=== PATIENT | male | born 1965 | race Two or more races ===

== ENCOUNTER 2021-06-17 10:14 | Emergency (ER) | payer SELFPAY ==
[~2021-06-17] VITALS: Ht 167.6 cm; Wt 81.8 kg
[2021-06-17] MEDS ORDERED: KETOROLAC 60 MG/2 ML VIAL. IM ONE (11:00)
[2021-06-17] MEDS ORDERED: ORPHENADRINE CITRATE 60 MG/2 ML VIAL. IM ONE (11:00)
[2021-06-17] MEDS ORDERED: MORPHINE SULFATE 2 MG/ML INJ. IVP ONE (11:30)
--- NOTE | 2021-06-17 11:52 | RAD ---
CT HEAD WITHOUT CONTRAST 06/17/2021 11:03 AM Indication: Reason: fall from 10ft / Spl. Instructions: / History: Comparison: None Procedure: Multidetector CT imaging of the head was performed without the administration of contrast. Findings: There is no evidence of acute intracranial hemorrhage. There is no evidence of acute territ orial infarction. Please note that CT is limited for evaluation of acute ischemia. No mass effect or midline shift is identified . The ventricles and basilar cisterns have an appropriate appearance. No abnormal extra-axial fluid collections are seen. No acute osseous changes are identified. Impression: No evidence of acute intracranial abnormality CT cervical spine without contrast. 06/17/2021 11:03 AM Indication:Reason: fall from 10ft / Spl. Instructions: / History: Comparison Study: None Technique: Multidetector CT imaging of the cervical spine was obtained without administration of cont rast. Findings: There is no evidence of acute fracture or alignment abnormality of the cervical spine. Vert ebral body heights and disc spaces are maintained. The atlantoaxial articulation is within normal li mits. There is no prevertebral soft tissue swelling. . No bony compromise of the spinal canal is see n. There is a nodular opacity seen in the right lung apex possibly relating to scarring, but somewhat poorly visualized measuring approximately 7 mm in diameter. Impression: 1.No evidence of acute fracture or alignment abnormality of the cervical spine 2. 7 mm nodular opacity, right upper lung. Follow-up CT chest recommended. CT DOSING PQRS STATEMENT: One or more of the following individualized dose reduction techniques were utilized for this examinat ion: 1. Automated exposure control 2. Adjustment of the mA and/or kV according to patient size 3. Use of iterative reconstruction technique Electronically signed by: Jay Jay Brown MD (06/17/2021 11:50 AM) [id number]
--- NOTE | 2021-06-17 12:10 | RAD ---
CT thoracic and lumbar spine without contrast. 06/17/2021 11:03 AM Indication:Reason: fall from 10ft Comparison Study: None Technique: Multidetector CT imaging of the thoracic and lumbar spine was obtained without administrat ion of contrast. Findings: There is no evidence of acute fracture or alignment abnormality of the thoracic spine. Crissy tebral body heights and disc spaces are maintained. There is no prevertebral soft tissue swelling. So ft tissues are otherwise unremarkable. No bony compromise of the spinal canal is seen. There is a nondisplaced fracture of the right transverse process of L3. No other acute fractures of t he lumbar spine are identified. Vertebral body heights and disc spaces are maintained. The There is no prevertebral soft tissue swelling. 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 Soft tissues are otherwise unremarkable. No bony compromise of the spinal canal is seen IMPRESSION: 1. No evidence of acute fracture or alignment abnormality of the thoracic spine 2. Nondisplaced fracture, right transverse process of L3 3. No other acute fracture of the lumbar spine is identified CT DOSING PQRS STATEMENT: One or more of the following individualized dose reduction techniques were utilized for this examinat ion: 1. Automated exposure control 2. Adjustment of the mA and/or kV according to patient size 3. Use of iterative reconstruction technique Electronically signed by: Jay Jay Brown MD (06/17/2021 12:08 PM) [id number]
--- NOTE | 2021-06-17 12:17 | PHYS DOC ---
Past Medical History Past Surgical History: No Surgical History (JEREMIAH AGUILAR) Smoking Status: Never Smoker Alcohol Use: None (JEREMIAH AGUILAR) General Adult EDM: Chief Complaint: BACK PAIN OR INJURY HPI: HPI: Patient is a 55 year old male who presents with low back pain and bilateral lower extremity weakness status post fall yesterday. Patient states that he was working on a ceiling and fell backwards 10 feet onto his back. He reports associated paresthesias in bilateral lower extremities. Patient states that when he stands up, he does not have muscle strength and can only walk very short distances. Patient denies saddle anesthesia, bowel or bladder incontinence, loss of consciousness, nausea/vomiting, headache. (JEREMIAH AGUILAR) Review of Systems: Review of Systems: Constitutional: Denies fever, chills or generalized weakness Eyes: Denies change in visual acuity, visual field deficits or discharge HENT: Denies ear pain, nasal congestion or sore throat Respiratory: Denies cough or shortness of breath Cardiovascular: Denies chest pain, palpitations or edema GI: Denies abdominal pain, nausea, vomiting, bloody stools or diarrhea : Denies dysuria or hematuria Musculoskeletal: See HPI Integument: Denies rash or other skin lesion Neurologic: See HPI (JEREMIAH AGUILAR) Heart Score: C/O Chest Pain: No (JEREMIAH AGUILAR) Current Medications: Current Medications Medications (Trade) Dose Ordered Sig/Abhishek Route PRN Reason Start Time Stop Time Status Last Admin Dose Admin Morphine Sulfate (Morphine Sulfate) 2 mg 1X ONCE IVP 06/17/21 11:30 06/17/21 11:31 DC 06/17/21 12:05 (JEREMIAH AGUILAR) Allergies: Allergies: Allergies Coded Allergies Type Severity Reaction Last Updated Verified naproxen Allergy Intermediate STOMACCH PAIN 06/17/21 Yes (JEREMIAH AGUILAR) Physical Exam: PE: Constitutional: Well developed, well nourished, no acute distress, non-toxic appearance. HENT: Normocephalic, atraumatic, bilateral external ears normal, nose normal. Eyes: EOMI, conjunctiva normal, no discharge. Neck: Normal range of motion, no tenderness, no stridor. Skin: Warm, dry, no erythema, no rash. Back: Lumbar midline tenderness without step-off, paraspinal spasm and tenderness appreciated. Extremities: No tenderness, no cyanosis, no clubbing, ROM intact, no edema. Neurologic: Alert and oriented x4, bilateral great toe dorsiflexion intact. (JEREMIAH AGUILAR) Current Patient Data: Vital Signs: Vital Signs Date Time Temp Pulse Resp B/P (MAP) Pulse Ox O2 Delivery O2 Flow Rate FiO2 06/17/21 12:05 16 Room Air 06/17/21 10:59 97.7 75 140/89 (106) 99 97.7 (JEREMIAH AGUILAR) Radiology/Procedures: Radiology/Procedures: PROCEDURE: CT HEAD AND CERVICAL SPINE WO CT HEAD WITHOUT CONTRAST 06/17/2021 11:03 AM Indication: Reason: fall from 10ft / Spl. Instructions: / History: Comparison: None Procedure: Multidetector CT imaging of the head was performed without the administration of contrast. Findings: There is no evidence of acute intracranial hemorrhage. There is no evidence of acute territorial infarction. Please note that CT is limited for evaluation of acute ischemia. No mass effect or midline shift is identified . The ventricles and basilar cisterns have an appropriate appearance. No abnormal extra-axial fluid collections are seen. No acute osseous changes are identified. Impression: No evidence of acute intracranial abnormality CT cervical spine without contrast. 06/17/2021 11:03 AM Indication:Reason: fall from 10ft / Spl. Instructions: / History: Comparison Study: None Technique: Multidetector CT imaging of the cervical spine was obtained without administration of contrast. Findings: There is no evidence of acute fracture or alignment abnormality of the cervical spine. Vertebral body heights and disc spaces are maintained. The atlantoaxial articulation is within normal limits. There is no prevertebral soft tissue swelling. . No bony compromise of the spinal canal is seen. There is a nodular opacity seen in the right lung apex possibly relating to scarring, but somewhat poorly visualized measuring approximately 7 mm in diameter. Impression: 1.No evidence of acute fracture or alignment abnormality of the cervical spine 2. 7 mm nodular opacity, right upper lung. Follow-up CT chest recommended. CT DOSING PQRS STATEMENT: One or more of the following individualized dose reduction techniques were utilized for this examination: 1. Automated exposure control 2. Adjustment of the mA and/or kV according to patient size 3. Use of iterative reconstruction technique Electronically signed by: Jay Jay Brown MD (06/17/2021 11:50 AM) [id number] PROCEDURE: CT THORACIC SPINE WO CONTRAST CT thoracic and lumbar spine without contrast. 06/17/2021 11:03 AM Indication:Reason: fall from 10ft Comparison Study: None Technique: Multidetector CT imaging of the thoracic and lumbar spine was obtained without administration of contrast. Findings: There is no evidence of acute fracture or alignment abnormality of the thoracic spine. Vertebral body heights and disc spaces are maintained. There is no prevertebral soft tissue swelling. Soft tissues are otherwise unremarkable. No bony compromise of the spinal canal is seen. There is a nondisplaced fracture of the right transverse process of L3. No other acute fractures of the lumbar spine are identified. Vertebral body heights and disc spaces are maintained. The There is no prevertebral soft tissue swelling. 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 Soft tissues are otherwise unremarkable. No bony compromise of the spinal canal is seen IMPRESSION: 1. No evidence of acute fracture or alignment abnormality of the thoracic spine 2. Nondisplaced fracture, right transverse process of L3 3. No other acute fracture of the lumbar spine is identified CT DOSING PQRS STATEMENT: One or more of the following individualized dose reduction techniques were utilized for this examination: 1. Automated exposure control 2. Adjustment of the mA and/or kV according to patient size 3. Use of iterative reconstruction technique Electronically signed by: Jay Jay Brown MD (06/17/2021 12:08 PM) [id number] (JEREMIAH AGUILAR) Course & Med Decision Making: Course & Med Decision Making Pertinent Labs and Imaging studies reviewed. (See chart for details) Patient is a 55-year-old male who fell from a height of 10 feet yesterday while at work. Imaging today will include CT plain head, C-spine, T-spine, L-spine. Imaging reveals a stable transverse process fracture at L3 without other involvement. Patient will be referred to pain management. Discussed with the patient that no consult with orthopedics or neurosurgery as necessary with this type of fracture. Strict return precautions were provided. Patient was also provided with a work note. Patient and his family member at bedside understand and are agreeable to discharge plan. (JEREMIAH AGUILAR) Dragon Disclaimer: Dragon Disclaimer: This electronic medical record was generated, in whole or in part, using a voice recognition dictation system. (JEREMIAH AGUILAR) Departure Departure Impression: Primary Impression: Lumbar transverse process fracture Qualified Codes: S32.009A - Unspecified fracture of unspecified lumbar vertebra, initial encounter for closed fracture Additional Impression: Injury resulting from fall from height Disposition: HOME / SELF CARE / HOMELESS Condition: IMPROVED Referrals: NO PCP (PCP) CYN LYNCH MD Patient Instructions: Transverse Process Fracture Additional Instructions: EMERGENCY DEPARTMENT GENERAL DISCHARGE INSTRUCTIONS Thank you for coming to [facility] Emergency Department (ED) today and trusting us with you care. We trust that you had a positive experience in our Emergency Department. If you wish to speak to the department management, you may call the director at . YOUR FOLLOW UP INSTRUCTIONS ARE FOLLOWS: 1. Follow up with your primary care doctor. If you do not have a primary doctor, please ask for a resource list of physicians or clinics that may be able to assist you with follow up care. 2. The emergency provider has interpreted your imaging studies, if any were ordered. The radiology client relations specialist also reviewed them. If there is a change in the findings, you will be notified in 48 hours when at all possible. 3. If a lab test or culture has been done, your results will be reviewed and you will be notified if you need a change in treatment. 4. Follow instructions verbalized to you and refer to the printouts if needed. ADDITIONAL INSTRUCTIONS AND INFORMATION: 1. Your care today has been supervised by a physician who is specially trained in emergency care. Many problems require more than one evaluation for a complete diagnosis and treatment. We recommend that you schedule your follow up appointment as recommended to ensure complete treatment of you illness or injury. If you are unable to obtain follow up care and continue to have a problem, or if your condition worsens, we recommend that you return to the ED. 2. We are not able to safely determine your condition over the phone nor are we able to give sound medical advice over the phone. For these safety reasons, if you call for medical advice we will ask you to come to the ED for further evalua tion. 3. If you have any questions regarding these discharge instructions please call the ED at . SAFETY INFORMATION: In the interest of safety, wellness, and injury prevention; we encourage you to wear your seat belt, if you smoke; quite smoking, and we encourage family to use a protective helmet for bicycling and other sporting events that present an increased risk for head injury. IF YOUR SYMPTOMS WORSEN OR NEW SYMPTOMS DEVELOP, OR YOU HAVE CONCERNS ABOUT YOUR CONDITION; OR IF YOUR CONDITION WORSENS WHILE YOU ARE WAITING FOR YOUR FOLLOW UP APPOINTMENT; EITHER CONTACT YOUR PRIMARY CARE DOCTOR, THE PHYSICIAN WHOSE NAME AND NUMBER YOU WERE GIVEN, OR RETURN TO THE ED IMMEDIATELY. Scripts Polyethylene Glycol 3350 (MIRALAX) 119 Gm Powder 17 GM PO DAILY for constipation, #255 GM 0 Refills dissolve in water Prov: JEREMIAH AGUILAR 06/17/21 Hydrocodone/Acetaminophen (Hydrocodone-Acetamin 5-325 mg) 1 Each Tablet 1 EACH PO PRN Q6HRS PRN for PAIN, #20 TAB Take 1 tablet by mouth every 6 hours as needed for pain. May also take daily dose of MiraLAX to avoid constipation. Prov: JEREMIAH AGUILAR 06/17/21 Attending Signature Attending Signature I have reviewed the PA/SOCIAL MEDIA SPECIALIST's note and plan of care. I was available for consultation as needed during the patient's visit in the emergency department. I agree with the clinical impression, plan, and disposition. (LILI MALHOTRA DO) JEREMIAH AGUILAR Jun 17, 2021 12:17 LILI MALHOTRA DO Jun 18, 2021 09:01
[2021-06-17] MEDS ORDERED: HYDR-2759 PO (12:55)
[2021-06-17] MEDS ORDERED: POLY119P4 PO (12:55)
[2021-06-17 13:05] VITALS: BP 136/84
== END 2021-06-17 13:19 | disposition home or self-care (01) ==
LOC: ER 10:14
DX: S32.009A Unspecified fracture of unspecified lumbar vertebra, initial encounter for closed fracture (principal); R53.1 Weakness; R51.9 Headache, unspecified; M54.2 Cervicalgia; W18.39XA Other fall on same level, initial encounter; Y93.89 Activity, other specified; Y92.89 Other specified places as the place of occurrence of the external cause; Y99.8 Other external cause status
CPT/HCPCS: 70450; 72125; 72128; 72131; 96374; 99284; J2270